=== PATIENT | male | born 1970 | race Caucasian/White ===

== ENCOUNTER 2016-12-14 06:44 | Emergency (ER) | payer BC ==
[2016-12-14 06:52] VITALS: BP 129/87
--- NOTE | 2016-12-14 07:24 | ERNOTE ---
Integumentary HPI - General Presenting Symptoms: abscess Time Seen by Provider: 12/14/16 07:14 Source: patient Exam Limitations: no limitations - Immun/Allergies/Home Medications Immunizations: IMMUNIZATION HX Immunizations Up to Date No History of Influenza Vaccine No Hx Pneumococcal Vaccination No Allergies/Adverse Reactions: Allergies Allergy/AdvReac Type Severity Reaction Status Date / Time No Known Allergies Allergy Unverified 12/14/16 06:52 Home Medications: HOME MEDICATIONS Cetirizine HCl/Pseudoephedrine [Allergy D-12 Tablet] 1 each PO DAILY PRN [Last Taken Unknown] - Pain Pain Score: 0 - History of Present Illness Narrative: Pt states he has been having problems with his previous skin cancer surgery site at his left ear for about 6 months. He has been packing it and then an area just below that site on his neck opened up. both are draining purulent odorus discharge Location: Reports: neck - left, facial - left side where ear was previously Quality: Reports: other - draining Severity: severe Exposure: Reports: other - Previous skin cancer removal area Modifying Factors - (Improves): Reports: nothing Modifying Factors - (Worsens): Reports: nothing Associated Symptoms: Reports: change in skin texture, swelling/mass/lumps, fever Review of Systems - Review of Systems Constitutional: Present: fever, chills EYE: Present: no symptoms reported ENT: Present: See HPI Respiratory: Present: no symptoms reported Cardiology: Present: no symptoms reported Gastrointestinal/Abdominal: Present: no symptoms reported Genitourinary: Present: no symptoms reported Musculoskeletal: Absent: muscle pain, neck pain Skin: Present: See HPI Neurological: Present: no symptoms reported Endocrine: Present: no symptoms reported Hematologic/Lymphatic: Present: no symptoms reported Psych: Present: no symptoms reported - Patient's Past Medical History Patient History - Medical: No pertinent hx Patient History - Cardiac/Respiratory: No pertinent hx Patient History - Cancer: Skin, Surgical Treatment - with removal of left ear 4 years ago Patient History - Surgical Procedures: T & A Patient History - Other: None - Social History Living Situations: alone Abuse History: No History of abuse Psych History: No pertinent hx Smoking Status: Current some day smoker Have you smoked in the past 12 months: Yes - cigar rarely Alcohol Use: none Drug Use: none - Immunizations Immunizations Up to Date: No Hx Pneumococcal Vaccination: No History of Influenza Vaccine: No Physical Exam - Physical Exam General Appearance: Present: wd/wn, alert, no apparent distress Eye Exam: Normal inspection: bilateral, EOMI: bilateral Ears, Nose, Throat: Present: other - Left ear surgically removed. Large ulcer around the EAC 8 cm x 7 cm x 2.7 cm deep with purlent material over much of the beefy red tissue. Neck: Present: other - left neck on the posterior border of the SCM, inferior 1/ 3 of the SCM there is an open ulcer 5.8 cm x 3.6 cm x 2 cm deep. Purlent material within this ulcer also. Area anterior to this ulcer is indurated and very firm. Respiratory: Present: no respiratory distress, no accessory muscle use Neurological Exam: Present: alert, oriented, normal mood/affect Skin Exam: Present: other - See neck and ENT ED Progress - Vital Signs Patient's Vital Signs:: I have reviewed the patient's vital signs. Vital Signs: Vital Signs 12/14/16 06:49 Temperature 36.7 C Pulse Rate 89 Respiratory 16 Rate Blood Pressure 129/87 O2 Sat by Pulse 97 Oximetry - Progress/Reassessment Chief Complaint: Abscess Progress Note-Subjective: 12/14/16 07:[address] Swenson and he requested that the patient be sent directly to his office without further work up here. Pt may come this morning or afternoon he will be worked into the schedule either way. Pt. stated that he would go immediately. Departure Clinical Impression: Ulcer, Abscess - Departure Disposition: Home Follow Up Needed Condition: Fair Instructions: Abscess, [id number] Additional Instructions: See Dr. Swenson today at his clinic for further evaluation Referrals: Mehran Swenson MD [Courtesy Staff] -
--- OUTSIDE RECORDS SUMMARY | 2016-12-14 07:29 | XMS REPORT | Continuity of Care Document ---
:1970 Author Organization [facility] ([facility]) Address [address] [place] [address] Phone [phone] Care Team Providers Name Role Phone Marty Henry Primary Care Provider [phone] Source Comments This disclosure is being made pursuant to the Care Everywhere program, applicable federal and state laws, and may not contain all informaitonavailable regarding this patient.[facility] ([facility]) Active Allergies and Adverse Reactions No Active Allergies Current Medications Not on file Active Problems Not on file Social History Tobacco Use Types Packs/Day Years Used Date Never Assessed Plan of Care Health Maintenance Due Date Last Done Comments Hepatitis B Vaccine (1 of 3 - Primary Series) 1970 Tdap Vaccine 1981 Lipid Disorder Screening 1988 MMR Vaccine 1988 Td Vaccine 1988 Influenza Vaccine: Seasonal (#1) 02/20/2016 Results from Last 3 Months Not on file
== END 2016-12-14 07:37 | disposition home or self-care (01) ==
LOC: ER 06:44
DX: L98.499 Non-pressure chronic ulcer of skin of other sites with unspecified severity (principal)